=== PATIENT | female | born 1970 | race Caucasian/White ===

== ENCOUNTER 2017-04-27 09:39 | Outpatient (CLI) | payer MEDICAID ==
[2017-04-27] MEDS ORDERED: iohexol 300mg/ml 100ml inj. ONE (09:48)
== END 2017-04-27 23:59 | disposition home or self-care (01) ==
LOC: 64 CT 09:39
PROVIDERS: ATTEND Family Medicine
DX: N85.2 Hypertrophy of uterus (principal)
CPT/HCPCS: 74177; J7030; Q9967